=== PATIENT | female | born 2000 | race Caucasian/White ===

== ENCOUNTER 2020-12-07 21:48 | Emergency (ER) | payer OTHER ==
[2020-12-07 22:04] VITALS: TEMP 98.3; BMI 29.4
[2020-12-07] MEDS ORDERED: ACETAMINOPHEN 325 MG TABLET (FP) PO ONE (22:35)
[2020-12-07 22:43] LABS: EPI CELLS 12 /uL (0-25.1); HYALINE CASTS 14 /uL (0-3.1); PH,URINE 6.5 (5.0-8.0); URINE APPEARANCE CLEAR; URINE BACTERIA 571 /uL (0-1359); URINE BILIRUBIN NEGATIVE (NEGATIVE); URINE COLOR YELLOW; URINE GLUCOSE (UA) NEGATIVE (NEGATIVE); URINE KETONE 1+ (NEGATIVE); URINE LEUK ESTERASE 2+ (NEGATIVE); URINE NITRITE NEGATIVE (NEGATIVE); URINE PROTEIN 1+ (NEGATIVE); URINE RBC 20 /uL (0-23.9); URINE WBC 693 /uL (0-25.8)
[2020-12-07] MEDS ORDERED: ACETAMINOPHEN 325 MG TABLET (FP) ONE (22:45)
[2020-12-07 22:59] LABS: HCG,QUALITATIVE URINE Negative
[2020-12-07 23:06] VITALS: BP 122/64; PULSE 88
== END 2020-12-07 23:07 | disposition home or self-care (01) ==
LOC: JER 21:48
DX: N39.0 Urinary tract infection, site not specified (principal)
CPT/HCPCS: 81003; 84703; 87086; 99284-25